=== PATIENT | male | born 1950 | race Caucasian/White ===

== ENCOUNTER 2017-01-08 09:58 | Day surgery (SDC) | payer OTHER ==
[2017-01-08] MEDS ORDERED: NS 500 ML IV 500 ML IV ONE (10:49)
[2017-01-08] MEDS ORDERED: TETRACAINE HCL AFFEYE ONE (13:48)
[2017-01-08] MEDS ORDERED: BETADINE OPHTH SOLN 5% EACHEYE ONE (13:49)
[2017-01-08] MEDS ORDERED: VIGAMOX 0.5% OPHTH 1 DOSE AFFEYE ONE (14:00)
[2017-01-08 15:47] VITALS: BP 168/74
== END 2017-01-08 14:26 | disposition home or self-care (01) ==
LOC: SURG1 09:58
PROVIDERS: ATTEND Ophthalmology
PROC: 08U107Z Supplement of Left Eye with Autologous Tissue Substitute, Open Approach (ICD-10-PCS; principal; 2017-01-08 20:00)
PROC: 08BTXZX Excision of Left Conjunctiva, External Approach, Diagnostic (ICD-10-PCS; principal; 2017-01-08 20:00)
DX: H11.002 Unspecified pterygium of left eye (principal)
CPT/HCPCS: A4217

== ENCOUNTER 2017-02-26 09:01 | Day surgery (SDC) | payer OTHER ==
[2017-02-26] MEDS ORDERED: NS 500 ML IV 500 ML IV ONE (09:37)
[2017-02-26] MEDS ORDERED: DIPRIVAN VIAL ONE (09:45)
[2017-02-26] MEDS ORDERED: TETRACAINE 0.5% OPHTH 1 DOSE AFFEYE ONE ×2 (09:47→13:10)
[2017-02-26] MEDS ORDERED: VIGAMOX 0.5% OPHTH 1 DOSE AFFEYE ONE ×5 (09:50→13:46)
[2017-02-26] MEDS ORDERED: PROLENSA OPHTH 1 DOSE AFFEYE ONE (10:02)
[2017-02-26] MEDS ORDERED: ALPHAGAN-P OPHTH 1 DOSE AFFEYE ONE (10:05)
[2017-02-26] MEDS ORDERED: CYCLOGYL 1% OPHTH 1 DOSE OP ONE ×2 (10:07→10:11)
[2017-02-26] MEDS ORDERED: AK-DILATE 2.5% OPHTH 1 DOSE OP ONE ×2 (10:07→10:12)
[2017-02-26] MEDS ORDERED: MYDRIACIL OPHTH 1 DOSE AFFEYE ONE ×2 (10:07→10:12)
[2017-02-26] MEDS ORDERED: BETADINE OPHTH SOLN 5% EACHEYE ONE (13:10)
[2017-02-26] MEDS ORDERED: ADRENALINE CHL INJ IJ ONE ×2 (13:15→13:30)
[2017-02-26] MEDS ORDERED: XYLOCAINE-MPF 1% IJ ONE ×2 (13:15→13:30)
[2017-02-26] MEDS ORDERED: DUOVISC IO ONE ×2 (13:15→13:30)
[2017-02-26] MEDS ORDERED: BSS OPHTH (PLAIN) 500 ML with VANCOMYCIN HCL 500 MG VIAL 25 MG, ADRENALINE CHL INJ 1 MG IR ONE ×3 (13:16)
[2017-02-26] MEDS ORDERED: VISCOAT 0.5 ML IO ONE (13:36)
[2017-02-26 15:51] VITALS: BP 166/82
== END 2017-02-26 14:30 | disposition home or self-care (01) ==
LOC: SURG1 09:01
PROVIDERS: ATTEND Ophthalmology
PROC: 08DJ3ZZ Extraction of Right Lens, Percutaneous Approach (ICD-10-PCS; principal; 2017-02-26 17:00)
PROC: 08RJ3JZ Replacement of Right Lens with Synthetic Substitute, Percutaneous Approach (ICD-10-PCS; principal; 2017-02-26 17:00)
DX: H25.11 Age-related nuclear cataract, right eye (principal); H25.011 Cortical age-related cataract, right eye; H52.221 Regular astigmatism, right eye
CPT/HCPCS: V2797; A4217; J0170; J3370; J3490

== ENCOUNTER 2017-03-12 10:17 | Day surgery (SDC) | payer OTHER ==
[~2017-03-12 10:17] MED LIST: DIPRIVAN VIAL ONE
[2017-03-12] MEDS: TETRACAINE 0.5% OPHTH 1 DOSE AFFEYE ONE ×4 (11:14→14:34)
[2017-03-12] MEDS: VIGAMOX 0.5% OPHTH 1 DOSE AFFEYE ONE ×5 (11:15→14:48)
[2017-03-12] MEDS: PROLENSA OPHTH 1 DOSE AFFEYE ONE (11:27)
[2017-03-12] MEDS: ALPHAGAN-P OPHTH 1 DOSE AFFEYE ONE (11:29)
[2017-03-12] MEDS: MYDRIACIL OPHTH 1 DOSE AFFEYE ONE ×3 (11:30→11:39)
[2017-03-12] MEDS: AK-DILATE 2.5% OPHTH 1 DOSE OP ONE ×3 (11:30→11:39)
[2017-03-12] MEDS: CYCLOGYL 1% OPHTH 1 DOSE OP ONE ×3 (11:30→11:39)
[2017-03-12] MEDS: NS 500 ML IV 500 ML IV ONE (11:40)
[2017-03-12] MEDS: BETADINE OPHTH SOLN 5% EACHEYE ONE (14:25)
[2017-03-12] MEDS: XYLOCAINE-MPF 1% IJ ONE ×2 (14:30→14:34)
[2017-03-12] MEDS: ADRENALINE CHL INJ IJ ONE ×2 (14:30→14:34)
[2017-03-12] MEDS: DUOVISC IO ONE ×2 (14:30→14:34)
[2017-03-12] MEDS: BSS OPHTH (PLAIN) 500 ML with VANCOMYCIN HCL 500 MG VIAL 25 MG, ADRENALINE CHL INJ 1 MG IR ONE ×3 (14:35)
[2017-03-12 15:58] VITALS: BP 160/76
== END 2017-03-12 15:10 | disposition home or self-care (01) ==
LOC: SURG1 10:17
PROVIDERS: ATTEND Ophthalmology
PROC: 08RK3JZ Replacement of Left Lens with Synthetic Substitute, Percutaneous Approach (ICD-10-PCS; principal; 2017-03-12 20:00)
PROC: 08DK3ZZ Extraction of Left Lens, Percutaneous Approach (ICD-10-PCS; principal; 2017-03-12 20:00)
DX: H25.12 Age-related nuclear cataract, left eye (principal); H25.012 Cortical age-related cataract, left eye; H52.222 Regular astigmatism, left eye
CPT/HCPCS: V2797; A4217; J0170; J3370; J3490